=== PATIENT | female | born 1945 | race Caucasian/White ===

== ENCOUNTER 2017-07-10 13:27 | Observation (INO) | payer MEDICARE, OTHER ==
[~2017-07-10] VITALS: Ht 165.1 cm; Wt 81.5 kg
[2017-07-10] MEDS ORDERED: KETOROLAC 15 MG INJ IV STA (13:41)
[2017-07-10 14:12] LABS: BASOPHIL # 0.1 10^3/ul (0.0-0.1); BASOPHILS % 0.7 % (0.0-2.0); EOSINOPHILS # 0.3 10^3/ul (0.0-0.5); EOSINOPHILS % 3.5 % (0.0-7.0); HEMATOCRIT 38.4 % (37.0-47.0); HEMOGLOBIN 12.5 g/dl (12.0-16.0); LYMPHOCYTES # 2.7 10^3/ul (0.8-2.9); LYMPHOCYTES % 31.2 % (15.0-51.0); MEAN CORPUSCULAR HEMOGLOBIN 29.3 pg (29.0-33.0); MEAN CORPUSCULAR HGB CONC 32.6 g/dl (32.0-37.0); MEAN CORPUSCULAR VOLUME 90.1 fl (82.0-101.0); MEAN PLATELET VOLUME 10.7 fl (7.4-10.4); MONOCYTE # 0.7 10^3/ul (0.3-0.9); MONOCYTES % 7.4 % (0.0-11.0); PLATELET COUNT 281 10^3/UL (140-415); RED BLOOD COUNT 4.26 10^6/ul (4.20-5.40); RED CELL DISTRIBUTION WIDTH 13.2 % (11.5-14.5); WHITE BLOOD COUNT 8.8 10^3/ul (4.8-10.8)
[2017-07-10 14:32] LABS: ALBUMIN 4.5 g/dl (3.3-4.9); ALBUMIN/GLOBULIN RATIO 1.32; BILIRUBIN,INDIRECT 0.3 mg/dl (0-1.1); BILIRUBIN,TOTAL 0.3 mg/dl (0.2-1.3); CALCIUM 9.5 mg/dl (8.4-10.2); CREATININE 0.82 mg/dl (0.44-1.00); POTASSIUM 4.8 mmol/L (3.5-5.1); TOTAL PROTEIN 7.9 g/dl (6.1-8.1)
[2017-07-10 14:39] LABS: D-DIMER 488.69 ng/ml (<460)
--- NOTE | 2017-07-10 14:39 | RADRPT ---
PROCEDURE: XR Chest. CLINICAL INDICATION: Abdominal pain. TECHNIQUE: Single frontal chest x-ray. COMPARISON: 05/13/2008 FINDINGS: The lungs are clear. No focal opacification is seen. No pneumothorax or pleural effusion is seen. The cardiomediastinal silhouette is unremarkable. The osseous structures are grossly unremarkable. IMPRESSION: No evidence of acute cardiopulmonary disease. RPTAT: JJ .Mark More MD, MD Date Time Electronically viewed and signed by .Mark More MD, on 07/10/2017 14:39 .A/
[2017-07-10 14:44] LABS: TROPONIN-I 0.017 ng/ml (0.00-0.12)
[2017-07-10] MEDS ORDERED: ASPIRIN 81 MG TAB PO ONE (15:00)
[2017-07-10] MEDS ORDERED: IOHEXOL 100 ML ONE (15:41)
[2017-07-10] MEDS ORDERED: IOHEXOL 350MG/ML 50 ML BTL ONE (15:41)
[2017-07-10] MEDS ORDERED: SOD CHLORIDE 0.9% 100 ML ONE (15:41)
[2017-07-10 15:51] LABS: ADD UMIC YES; UR ASCORBIC ACID NEGATIVE (NEGATIVE); UR BILIRUBIN (Dip) NEGATIVE (NEGATIVE); UR BLOOD (Dip) 2+ mg/dL (NEGATIVE); UR CLARITY CLEAR (CLEAR); UR COLOR COLORLESS (YELLOW); UR GLUCOSE (Dip) NEGATIVE (NEGATIVE); UR KETONES (Dip) NEGATIVE (NEGATIVE); UR LEUKOCYTE ESTERASE (Dip) NEGATIVE Leu/ul (NEGATIVE); UR NITRITE (Dip) NEGATIVE (NEGATIVE); UR RBC 3 /HPF (0-5); UR SPECIFIC GRAVITY (Dip) 1.003 (1.003-1.030); UR TOTAL PROTEIN (Dip) NEGATIVE (NEGATIVE); UR UROBILINOGEN (Dip) NEGATIVE (NEGATIVE)
[2017-07-10] MEDS ORDERED: NACL 0.9% 3 ML SYG IV SCH (16:00)
[2017-07-10] MEDS ORDERED: morphine 2 MG INJ IV PRN (16:00)
[2017-07-10] MEDS ORDERED: ZOLPIDEM 5 MG TAB PO PRN (16:00)
[2017-07-10] MEDS ORDERED: LORAZEPAM 2 MG INJ IV PRN (16:00)
[2017-07-10] MEDS ORDERED: BISACODYL 10 MG SUPP PR PRN (16:00)
[2017-07-10] MEDS ORDERED: NITROGLYCERIN (SL) 0.4 MG TAB SL PRN (16:00)
[2017-07-10] MEDS ORDERED: MAGNESIUM HYDROXIDE 30ML CUP PO PRN (16:00)
[2017-07-10] MEDS ORDERED: ACETAMINOPHEN 325 MG TAB PO PRN (16:00)
[2017-07-10] MEDS ORDERED: DOCUSATE SODIUM 100 MG CAP PO PRN (16:00)
[2017-07-10] MEDS ORDERED: ONDANSETRON 4 MG INJ IV PRN (16:00)
[2017-07-10 16:20] VITALS: TEMP 98.4
--- NOTE | 2017-07-10 16:29 | RADRPT ---
PROCEDURE: CT ANGIOGRAM CHEST, PULMONARY EMBOLISM PROTOCOL: CLINICAL INDICATION: 72 years of age, female , rule out PE. COMPARISON: None TECHNIQUE: Image acquisition by series (and radiation doses in CTDIvol): 2.8, 28.2 and 13.3 mGy) Estimated cumulative dose or total cycm-dfclmy-omkfohk (DLP) is: 538 mGy-cm. Intravenous Contrast Medium Administered: 120 mL of Omnipaque 350 Cardiac Gating: None. FINDINGS: CARDIOVASCULAR: Diagnostic quality: Contrast opacification of the pulmonary arterial circulation is adequate for ass essment of pulmonary embolism. Study is not significantly limited by respiratory motion artifact. Pulmonary arteries: No filling defects to suggest pulmonary embolism. Not enlarged. Heart: No interventricular septal deviation. Normal in size. Mild coronary artery calcification. No significant valvular calcification. Pericardium: Small pericardial effusion. Thoracic aorta: Atherosclerosis. No aneurysm. Normal cervical branching. REMAINING CHEST: Medical devices: None. Thyroid: Normal. Lymph nodes: No supraclavicular, axillary, mediastinal, or hilar lymphadenopathy. Other mediastinal structures: No significant abnormality. Lung parenchyma: 0.5 cm ground-glass nodule posterior right upper lobe (3/96) and right lower lobe ( 3/145). 0.5 cm subpleural pulmonary nodule left lower lobe (3/194). 0.7 cm pulmonary nodule left lo wer lobe (3/191). Linear atelectasis right middle lobe and left lingula.. Airways: No significant abnormality. Pleura: No significant abnormality. Chest wall: No significant abnormality. Upper abdomen: Status post cholecystectomy with surgical clips. Bilateral renal parenchymal cysts. Musculoskeletal: Multilevel degenerative changes in spine. No suspicious bone lesions. IMPRESSION: Negative for evidence of acute PE. Nonspecific small pulmonary nodules measuring up to 0.7 cm in the left lower lobe. Recommend correl ation with previous imaging if available. If not available and in the absence of a known primary ne oplasm, recommend follow-up low-dose chest CT in 6-12 months per Fleischner criteria guidelines. RPTAT: HCTS Physician Juan Carlos Date Time Electronically viewed and signed by Physician Juan Carlos on 07/10/2017 16:28 CS/
[2017-07-10] MEDS ORDERED: DIPHENHYDRAMINE 50 MG INJ IV ONE (16:30)
[2017-07-10] MEDS ORDERED: hydrALAzine 20 MG INJ IV PRN (17:00)
[2017-07-10] MEDS ORDERED: LORAZEPAM 1 MG TAB PO PRN (17:00)
[2017-07-10] MEDS ORDERED: DIPHENHYDRAMINE 50 MG INJ IV PRN (17:00)
--- NOTE | 2017-07-10 17:01 | ERA ---
ER Documentation Chief Complaint Date/Time DATE: 07/10/17 TIME: 16:42 Chief Complaint BIB [facility] FOR CHEST PAIN X 3 DAYS , SEEN BY PMD TODAY FOR SAME HPI 72-year-old woman brought in by EMS from doctor's office for left axillary pain 3 days and "abnormal EKG" patient denies chest pain although does have pain over the left breast the left axilla for 3 days, she states the pain is new and denies previous episodes. She has had no cough, no calf or leg swelling, no fevers or chills, no headache or blurry vision. Patient was transported here by EMS without further complications. ROS All systems reviewed and are negative except as per history of present illness. Medications Home Meds No Active Prescriptions or Reported Meds Allergies Allergies: Coded Allergies: No Known Allergy (Unverified , 07/10/17) PMhx/Soc Dementia History of Surgery: Yes (CHOLECYSTECTOMY ) Anesthesia Reaction: No Hx Neurological Disorder: No Hx Respiratory Disorders: No Hx Cardiac Disorders: Yes (HIGH CHOLESTEROL ) Hx Psychiatric Problems: Yes (DEMENTIA) Hx Miscellaneous Medical Probl: Yes (GASTRITIS ) Hx Alcohol Use: Yes Hx Substance Use: No Hx Tobacco Use: No Smoking Status: Never smoker FmHx Family History: No diabetes Physical Exam Vitals Vital Signs Date Time Temp Pulse Resp B/P Pulse Ox O2 Delivery O2 Flow Rate FiO2 07/10/17 16:20 98.4 84 18 152/83 99 Room Air 07/10/17 13:41 98.1 94 18 144/93 98 Physical Exam GENERAL: Well-developed, well-nourished, well-hydrated, in no apparent distress , looks nontoxic in appearance HEENT: Moist mucous membranes, pink conjunctiva, no cervical spine tenderness or step-off deformities, no goiter, no jaundice or icterus, extraocular movements intact without pain. No submandibular induration, and no pharyngeal erythema NEURO: Alert and oriented 3, cranial nerves II through XII intact bilaterally, pupils equal round reactive to light, no focal deficits or facial asymmetry, sensation intact distally Strength 5/5 in upper and lower extremities bilaterally CARDIAC: Regular rate and rhythm, no murmurs rubs or gallops LUNGS: Clear bilaterally no wheezing crackles or stridor ABDOMEN: Soft nontender, no guarding, no rigidity, no rebound, no psoas sign no obturator sign. Normoactive bowel sounds SKIN: Warm and dry to touch, no abrasions, contusions, or hematomas, no lacerations, no ecchymosis, no target lesions, and without ulcers EXTREMITIES: No clubbing cyanosis or edema, calves are bilaterally symmetrical, no Homans sign, no popliteal cord sign. Distal pulses equal and bilateral PSYCH: Flat affect Result Diagram: 07/10/17 1350 07/10/17 1350 Results 24 hrs Laboratory Tests Test 07/10/17 13:50 07/10/17 14:20 White Blood Count 8.810^3/ul Red Blood Count 4.2610^6/ul Hemoglobin 12.5g/dl Hematocrit 38.4% Mean Corpuscular Volume 90.1fl Mean Corpuscular Hemoglobin 29.3pg Mean Corpuscular Hemoglobin Concent 32.6g/dl Red Cell Distribution Width 13.2% Platelet Count 52446^3/UL Mean Platelet Volume 10.7fl Neutrophils % 57.0% Lymphocytes % 31.2% Monocytes % 7.4% Eosinophils % 3.5% Basophils % 0.7% Nucleated Red Blood Cells % 0.0/100WBC Neutrophils # 5.010^3/ul Lymphocytes # 2.710^3/ul Monocytes # 0.710^3/ul Eosinophils # 0.310^3/ul Basophils # 0.110^3/ul Nucleated Red Blood Cells # 0.010^3/ul D-Dimer 488.69ng/ml D-Dimer Comment Sodium Level 143mmol/L Potassium Level 4.8mmol/L Chloride Level 103mmol/L Carbon Dioxide Level 23mmol/L Anion Gap 22 Blood Urea Nitrogen 10mg/dl Creatinine 0.82mg/dl Glucose Level 84mg/dl Calcium Level 9.5mg/dl Total Bilirubin 0.3mg/dl Direct Bilirubin 0.00mg/dl Indirect Bilirubin 0.3mg/dl Aspartate Amino Transf (AST/SGOT) 23IU/L Alanine Aminotransferase (ALT/SGPT) 29IU/L Alkaline Phosphatase 80IU/L Troponin I 0.017ng/ml B-Type Natriuretic Peptide 162PG/ML Total Protein 7.9g/dl Albumin 4.5g/dl Globulin 3.40g/dl Albumin/Globulin Ratio 1.32 Lipase 215U/L Urine Color COLORLESS Urine Clarity CLEAR Urine pH 5.0 Urine Specific [place] 1.003 Urine Ketones NEGATIVEmg/dL Urine Nitrite NEGATIVEmg/dL Urine Bilirubin NEGATIVEmg/dL Urine Urobilinogen NEGATIVEmg/dL Urine Leukocyte Esterase NEGATIVELeu/ul Urine Microscopic RBC 3/HPF Urine Microscopic WBC 0/HPF Urine Hemoglobin 2+mg/dL Urine Glucose NEGATIVEmg/dL Urine Total Protein NEGATIVEmg/dl Current Medications Medications (Trade) Dose Ordered Sig/Merritt Route PRN Reason Start Time Stop Time Status Last Admin Dose Admin Ketorolac Tromethamine (Toradol) 15 mg ONCE STAT IV 07/10/17 13:41 07/10/17 13:43 DC 07/10/17 13:52 Aspirin (Aspirin) 324 mg ONCE ONCE PO 07/10/17 15:00 07/10/17 15:01 DC 07/10/17 15:22 IV Flush 10 ml 10 ml STK-MED ONCE .ROUTE 07/10/17 15:41 07/10/17 15:42 DC 07/10/17 16:06 Sodium Chloride 100 ml @ ud STK-MED ONCE .ROUTE 07/10/17 15:41 07/10/17 15:42 DC 07/10/17 16:07 Iohexol (Omnipaque) 100 ml @ ud STK-MED ONCE .ROUTE 07/10/17 15:41 07/10/17 15:42 DC 07/10/17 16:06 Iohexol 50 ml 50 ml STK-MED ONCE .ROUTE 07/10/17 15:41 07/10/17 15:42 DC 07/10/17 16:07 Sodium Chloride (NS) 1,000 ml @ 75 mls/hr [id number] IV 07/10/17 15:48 IV Flush (NS 3 ml) 3 ml PER PROTOCOL IV 07/10/17 16:00 Lorazepam (Ativan) 0.5 mg Q6H PRN IV ANXIETY 07/10/17 16:00 07/10/17 16:38 DC Ondansetron HCl (Zofran Inj) 4 mg Q6H PRN IV NAUSEA AND/OR VOMITING 07/10/17 16:00 Aspirin (Aspirin) 81 mg DAILY PO 07/11/17 09:00 Nitroglycerin (Nitroglycerin (Sl Tab) 0.4 Mg) 1 tab Q5M PRN SL CHEST PAIN 07/10/17 16:00 Acetaminophen (Tylenol Tab) 650 mg Q6H PRN PO PAIN LEVEL 1-3 OR FEVER 07/10/17 16:00 Morphine Sulfate (morphine) 2 mg Q4H PRN IV PAIN LEVEL 7-10 07/10/17 16:00 Zolpidem Tartrate (Ambien) 5 mg QHS PRN PO INSOMNIA 07/10/17 16:00 07/10/17 16:38 DC Docusate Sodium (Colace) 100 mg Q12H PRN PO CONSTIPATION 07/10/17 16:00 Magnesium Hydroxide (Milk Of Mag) 30 ml DAILY PRN PO CONSTIPATION 07/10/17 16:00 Bisacodyl (Dulcolax Supp) 10 mg DAILY PRN LA CONSTIPATION 07/10/17 16:00 Pantoprazole (Protonix Tab) 40 mg DAILY@06 PO 07/11/17 06:00 Enoxaparin Sodium (Lovenox) 40 mg DAILY SC 07/11/17 09:00 Diphenhydramine HCl (Benadryl) 25 mg ONCE ONCE IV 07/10/17 16:30 07/10/17 16:31 DC 07/10/17 16:16 Lorazepam (Ativan) 1 mg Q8 PRN PO ANXIETY 07/10/17 17:00 UNV Diphenhydramine HCl (Benadryl) 25 mg Q6H PRN IV ITCHING 07/10/17 17:00 UNV Metoprolol Tartrate (Lopressor) 25 mg BID PO 07/10/17 21:00 UNV Hydralazine HCl (Apresoline) 10 mg Q8H PRN IV ELEVATED BLOOD PRESSURE 07/10/17 17:00 UNV Atorvastatin Calcium (Lipitor) 40 mg HS PO 07/10/17 21:00 UNV Procedures/MDM IV line was established patient was placed on night monitor rhythm strip revealed a sinus rhythm at about 90 bpm with upright P and T waves. Patient was afebrile. Thorough manual examination of the left axilla was performed, normal, mobile, nontender lymph nodes palpated no obvious tender or firm lymphadenopathy was noted. EKG performed, read by me revealed a normal sinus rhythm at 92 bpm, normal axis , narrow QRS complex, no concerning ST elevations or depressions noted. Chest X-ray 1V Interpreted by me: Soft Tissue: No acute abnormalities Bones: No acute abnormalities Mediastinum/Cardiac Silhouette/Lungs: No acute abnormalities CBC and electrolytes were normal, liver function tests are normal, troponin was negative. Urine analysis was negative for infection. D-dimer elevated at 490. Patient's complaints of pain are vague and she has been experiencing new, unusual axillary pain so I ordered CT angiogram of the chest. CTA was negative for pulmonary embolism although it did reveal left pulmonary nodules, further workup required I will defer to the admitting physician and her PMD. Cardiac Critical Care: Time: 37 minutes, this was time separate from other billable procedures Treatments/Evaluations: Close monitoring for dangerous arrhythmia and cardiovascular collapse, while treating with advance cardiac medications and techniques. I administered aspirin 324 mg p.o. for cardioprotective measures and Toradol 15 mg IV 1. Patient will be admitted to telemetry setting for continued medical management cardiology consultation Departure Diagnosis: Primary Impression: Chest pain Qualified Code: R07.9 - Chest pain, unspecified type Additional Impressions: Pulmonary nodules Left axillary pain Dementia Qualified Code: G30.8 - Alzheimer's dementia with behavioral disturbance, unspecified timing of dementia onset Condition: HUY Horowitz MD Jul 10, 2017 17:01
[2017-07-10 17:08] VITALS: PULSE 60
--- NOTE | 2017-07-10 17:29 | HP ---
Date/Time of Note Date/Time of Note DATE: 07/10/17 TIME: 17:16 Assessment/Plan VTE Prophylaxis VTE Prophylaxis Intervention: LMWH Assessment/Plan Assessment/Plan 72-year-old female: 1. Chest discomfort, left-sided under the breast and axillary area, seems to be atypical, CT angiogram negative. Cardiac enzymes negative 1, EKG with no acute changes. 2 more sets of cardiac enzymes to rule out for acute coronary syndrome 2D echocardiogram Cardiology consult for possible stress test in a.m. Blood pressure control Check fasting lipid panel and start statin therapy as patient does have a history of hyperlipidemia and noncompliant. Baby aspirin daily 2. Hypertension: Start metoprolol, monitor on telemetry 3. Hyperlipidemia: Check fasting lipid panel, start statin therapy 4. Memory loss, early/mild dementia: Patient apparently was on Namenda as an outpatient but was not compliant with it and she would forget to take it. I have advised the daughter to request for neurology referral as an outpatient through their primary care physician for dementia workup and care. Prophylaxis: Pepcid for GI prophylaxis, Lovenox for DVT prophylaxis Disposition: Admit to telemetry observation, rule out acute coronary syndrome, cardiology consult for possible stress test in a.m. HPI/ROS Admit Date/Time Admit Date/Time Jul 10, 2017 at 15:48 Hx of Present Illness Chief complaint: Left-sided chest discomfort History of presenting illness: This is a 72-year-old female with known hyperlipidemia, hypertension noncompliant with medication due to apparently worsening memory loss and possible mild dementia who was brought into the emergency department by her daughter after being referred by their primary care physician due to chest pain and reported abnormal EKG. Patient was also hypertensive at the primary care physician office. In the emergency department when questioned the patient does not even remember having chest pains, she is slightly hypertensive systolic in the 150s, EKG shows possible old anterior infarct, cardiac enzymes negative 1 and chest x-ray within normal. Patient had a slightly elevated d-dimer, CT angiogram was done, no pulmonary embolus, patient does have a pulmonary nodule subcentimeter unlikely to cause symptoms. Given her risk factors she is being admitted to telemetry observation for rule out acute coronary syndrome, 2D echocardiogram has been ordered, 2 additional set of cardiac enzymes will be drawn overnight. Echocardiogram has been ordered and Dr. Floyd will be consulted for possible stress test in a.m. if cardiac enzymes are negative. Patient is started on antihypertensive along with statin therapy. He is also maintained on baby aspirin. She denies dizziness, diaphoresis, nausea, vomiting, she is unable to tell me if there are any alleviating or exacerbating factors of her chest pain or pressure. She denies shortness of breath or pleuritic pain. She denies lower extremity edema or dyspnea on exertion. She does have varicose veins noted. ROS Constitutional: no complaints Eyes: no complaints Respiratory: no complaints Cardiovascular: chest pain Gastrointestinal: no complaints Genitourinary: no complaints Musculoskeletal: no complaints Neurologic: other (Memory loss) Endocrine: no complaints Lymphatic: other (Varicose vein) Psychological: confusion (At times) PMH/Family/Social Past Medical History Memory loss, early dementia. Medical History: high cholesterol, hypertension Past Surgical History Past Surgical Hx: cholecystectomy (Remotely) Social History Alcohol Use: none Smoking Status: Never smoker Exam/Review of Systems Vital Signs Vitals Vital Signs Date Time Temp Pulse Resp B/P Pulse Ox O2 Delivery O2 Flow Rate FiO2 07/10/17 17:08 60 07/10/17 16:20 98.4 18 152/83 99 Room Air Exam Constitutional: alert, oriented (2 to 3), well developed Head: atraumatic, normocephalic Neck: supple Respiratory: clear to auscultation, normal air movement Cardiovascular: nl pulses, regular rate and rhythm Gastrointestinal: non-tender, soft Musculoskeletal: nl extremities to inspection, other (No edema, clubbing or cyanosis) Extremities: other (Varicose veins noted bilaterally) Neurological: CAR HOP II-XII intact, nl mental status (Occasional memory loss), nl speech Labs Result Diagram: 07/10/17 1350 07/10/17 1350 Medications Medications Current Medications Sodium Chloride (NS) 1,000 ml @ 75 mls/hr [id number] IV ; Start 07/10/17 at 15:48 Ondansetron HCl (Zofran Inj) 4 mg Q6H PRN IV NAUSEA AND/OR VOMITING; Start 09/16 at 16:00 Aspirin (Aspirin) 81 mg DAILY PO ; Start 07/11/17 at 09:00 Nitroglycerin (Nitroglycerin (Sl Tab) 0.4 Mg) 1 tab Q5M PRN SL CHEST PAIN; Start 07/10/17 at 16:00 Acetaminophen (Tylenol Tab) 650 mg Q6H PRN PO PAIN LEVEL 1-3 OR FEVER; Start at 16:00 Morphine Sulfate (morphine) 2 mg Q4H PRN IV PAIN LEVEL 7-10; Start 07/10/17 at 16:00 Docusate Sodium (Colace) 100 mg Q12H PRN PO CONSTIPATION; Start 07/10/17 at 16: 00 Magnesium Hydroxide (Milk Of Mag) 30 ml DAILY PRN PO CONSTIPATION; Start at 16:00 Bisacodyl (Dulcolax Supp) 10 mg DAILY PRN OR CONSTIPATION; Start 07/10/17 at 16 :00 Pantoprazole (Protonix Tab) 40 mg DAILY@06 PO ; Start 07/11/17 at 06:00 Enoxaparin Sodium (Lovenox) 40 mg DAILY SC ; Start 07/11/17 at 09:00 Lorazepam (Ativan) 1 mg Q8H PRN PO ANXIETY/INSOMNIA; Start 07/10/17 at 17:00 Diphenhydramine HCl (Benadryl) 25 mg Q6H PRN IV ITCHING; Start 07/10/17 at 17: 00 Metoprolol Tartrate (Lopressor) 25 mg BID PO ; Start 07/10/17 at 21:00 Hydralazine HCl (Apresoline) 10 mg Q8H PRN IV ELEVATED BLOOD PRESSURE; Start at 17:00 Atorvastatin Calcium (Lipitor) 40 mg HS PO ; Start 07/10/17 at 21:00 Procedures Procedures PROCEDURE: CT ANGIOGRAM CHEST, PULMONARY EMBOLISM PROTOCOL: CLINICAL INDICATION: 72 years of age, female , rule out PE. COMPARISON: None TECHNIQUE: Image acquisition by series (and radiation doses in CTDIvol): 2.8, 28.2 and 13.3 mGy) Estimated cumulative dose or total jqcq-wxqhlt-qzpcvyh (DLP) is: 538 mGy-cm. Intravenous Contrast Medium Administered: 120 mL of Omnipaque 350 Cardiac Gating: None. FINDINGS: CARDIOVASCULAR: Diagnostic quality: Contrast opacification of the pulmonary arterial circulation is adequate for assessment of pulmonary embolism. Study is not significantly limited by respiratory motion artifact. Pulmonary arteries: No filling defects to suggest pulmonary embolism. Not enlarged. Heart: No interventricular septal deviation. Normal in size. Mild coronary artery calcification. No significant valvular calcification. Pericardium: Small pericardial effusion. Thoracic aorta: Atherosclerosis. No aneurysm. Normal cervical branching. REMAINING CHEST: Medical devices: None. Thyroid: Normal. Lymph nodes: No supraclavicular, axillary, mediastinal, or hilar lymphadenopathy. Other mediastinal structures: No significant abnormality. Lung parenchyma: 0.5 cm ground-glass nodule posterior right upper lobe (3/96) and right lower lobe (3/145). 0.5 cm subpleural pulmonary nodule left lower lobe (3/194). 0.7 cm pulmonary nodule left lower lobe (3/191). Linear atelectasis right middle lobe and left lingula.. Airways: No significant abnormality. Pleura: No significant abnormality. Chest wall: No significant abnormality. Upper abdomen: Status post cholecystectomy with surgical clips. Bilateral renal parenchymal cysts. Musculoskeletal: Multilevel degenerative changes in spine. No suspicious bone lesions. IMPRESSION: Negative for evidence of acute PE. Nonspecific small pulmonary nodules measuring up to 0.7 cm in the left lower lobe. Recommend correlation with previous imaging if available. If not available and in the absence of a known primary neoplasm, recommend follow-up low-dose chest CT in 6-12 months per Fleischner criteria guidelines. LA KOVACS Jul 10, 2017 17:29
[2017-07-10 17:39] VITALS: Ht 165.1 cm; Wt 81.5 kg
[2017-07-10 17:59] VITALS: BP 131/69; PULSE 68; RESP 18
[2017-07-10] MEDS: SOD CHLORIDE 0.9% 1,000 ML IV SCH (18:45)
[2017-07-10 20:00] VITALS: PULSE 62
[2017-07-10 20:08] VITALS: BP 142/82; RESP 20
[2017-07-10 20:32] LABS: CREATINE KINASE 104 IU/L (23-200)
[2017-07-10 20:42] LABS: CK-MB 1.14 ng/ml (0.0-2.4)
[2017-07-10 20:47] LABS: TROPONIN-I < 0.012 ng/ml (0.00-0.12)
[2017-07-10] MEDS: METOPROLOL 25 MG TAB PO SCH (20:48)
[2017-07-10] MEDS ORDERED: ATORVASTATIN 40 MG TAB PO SCH (21:00)
[2017-07-11] VITALS (10 sets, daily range): BP systolic 113–139; BP diastolic 58–94; PULSE 52–85; RESP 19–20
[2017-07-11 03:21] LABS: BASOPHIL # 0.1 10^3/ul (0.0-0.1); BASOPHILS % 0.7 % (0.0-2.0); EOSINOPHILS # 0.4 10^3/ul (0.0-0.5); HEMATOCRIT 37.4 % (37.0-47.0); HEMOGLOBIN 12.3 g/dl (12.0-16.0); LYMPHOCYTES # 3.2 10^3/ul (0.8-2.9); LYMPHOCYTES % 41.6 % (15.0-51.0); MEAN CORPUSCULAR HEMOGLOBIN 29.7 pg (29.0-33.0); MEAN CORPUSCULAR HGB CONC 32.9 g/dl (32.0-37.0); MEAN CORPUSCULAR VOLUME 90.3 fl (82.0-101.0); MEAN PLATELET VOLUME 10.2 fl (7.4-10.4); MONOCYTE # 0.6 10^3/ul (0.3-0.9); MONOCYTES % 8.3 % (0.0-11.0); NEUTROPHIL # 3.4 10^3/ul (1.6-7.5); NEUTROPHILS % 44.1 % (39.0-77.0); PLATELET COUNT 277 10^3/UL (140-415); RED BLOOD COUNT 4.14 10^6/ul (4.20-5.40); RED CELL DISTRIBUTION WIDTH 13.1 % (11.5-14.5); WHITE BLOOD COUNT 7.7 10^3/ul (4.8-10.8)
[2017-07-11 03:40] LABS: CHOL/HDL RATIO 4.2 RATIO; CREATINE KINASE 81 IU/L (23-200)
[2017-07-11 03:42] LABS: ALBUMIN/GLOBULIN RATIO 1.25; BILIRUBIN,INDIRECT 0.4 mg/dl (0-1.1); BILIRUBIN,TOTAL 0.4 mg/dl (0.2-1.3); CALCIUM 9.1 mg/dl (8.4-10.2); CREATININE 0.86 mg/dl (0.44-1.00); POTASSIUM 4.5 mmol/L (3.5-5.1); TOTAL PROTEIN 7.2 g/dl (6.1-8.1)
[2017-07-11 03:54] LABS: CK-MB 1.04 ng/ml (0.0-2.4)
[2017-07-11 04:35] LABS: TROPONIN-I < 0.012 ng/ml (0.00-0.12)
[2017-07-11] MEDS: SOD CHLORIDE 0.9% 1,000 ML IV SCH (05:34)
[2017-07-11] MEDS ORDERED: PANTOPRAZOLE (EC) 40 MG TAB PO SCH (06:00)
[2017-07-11] MEDS: METOPROLOL 25 MG TAB PO SCH (08:57)
[2017-07-11] MEDS ORDERED: ENOXAPARIN 40 MG/0.4 ML SYG SC SCH (09:00)
[2017-07-11] MEDS ORDERED: ASPIRIN 81 MG TAB PO SCH (09:00)
[2017-07-11] MEDS ORDERED: REGADENOSON 0.4 MG/5 ML SYG ONE (13:45)
--- NOTE | 2017-07-11 15:33 | RADRPT ---
PROCEDURE: Nuclear medicine myocardial stress and rest scan. CLINICAL INDICATION: Chest pain. TECHNIQUE: The patient was stressed with 0.4 mg IV Lexiscan. 10.4 mCi technetium 99m Tetrofosmin (Myoview) was administered rest. 32.6 mCi technetium 99m Tetrofosmin (Myoview) was administered du ring stress. Images were obtained and reconstructed in the short axis, horizontal long axis, and ve rtical long axis. Gated images were obtained and ejection fraction was calculated. COMPARISON: No prior study is available for comparison. FINDINGS: The stress and rest images demonstrate normal uptake throughout. There is no fixed abnormality or r eversible abnormality. There is no evidence of transient ischemic dilatation. Wall motion is normal. There is normal wall thickening during systole. Ejection fraction at stress is 86%. IMPRESSION: 1. No evidence of stress induced myocardial ischemia. 2. Ejection fraction at stress is 86%. RPTAT: QQ .Javier Khan MD, MD Date Time Electronically viewed and signed by .Javier Khan MD, on 07/11/2017 15:33 .R/
--- NOTE | 2017-07-11 15:55 | PN ---
Date/Time of Note Date/Time of Note DATE: 07/11/17 TIME: 15:52 Assessment/Plan VTE Prophylaxis VTE Prophylaxis Intervention: LMWH Lines/Catheters IV Catheter Type (from [facility], [place]): Saline Lock Urinary Cath still in place: No Assessment/Plan Assessment/Plan 72-year-old female: 1. Chest discomfort, left-sided under the breast and axillary area, seems to be atypical, CT angiogram negative. Cardiac enzymes negative 3, EKG with no acute changes. 2D echocardiogram within normal. Stress test negative this morning. Discharge home on baby aspirin, low-dose beta blockers and statin therapy. Appreciate recommendations from cardiology. 2. Hypertension: Continue low-dose metoprolol. 3. Hyperlipidemia: Continue statin therapy. 4. Memory loss, early/mild dementia: Patient apparently was on Namenda as an outpatient but was not compliant with it and she would forget to take it. I have advised the daughter to request for neurology referral as an outpatient through their primary care physician for dementia workup and care. Prophylaxis: Pepcid for GI prophylaxis, Lovenox for DVT prophylaxis Disposition: Discharge home, follow-up with primary care physician within 1 week Subjective 24 Hr Interval Summary Free Text/Dictation Patient doing well this morning, no complaints at all, she does not even remember having an episode of chest pain from what she is trying to communicate. Cardiac workup negative, CT angiogram negative. Discharge home today with outpatient referral to neurology for workup and treatment of early dementia. Exam/Review of Systems Vital Signs Vitals Vital Signs Date Time Temp Pulse Resp B/P Pulse Ox O2 Delivery O2 Flow Rate FiO2 07/11/17 15:42 97.8 84 20 139/94 100 07/10/17 17:59 Room Air Intake and Output 07/10/17 07/10/17 07/11/17 15:00 23:00 07:00 Intake Total 240 ml 1400 ml Output Total 500 ml Balance 240 ml 900 ml Exam Constitutional: alert, oriented, well developed Respiratory: clear to auscultation, normal air movement Cardiovascular: nl pulses, regular rate and rhythm Gastrointestinal: non-tender, soft Musculoskeletal: nl extremities to inspection Extremities: normal pulses, other (No edema, clubbing or cyanosis) Neurological: [employer] SALES [employer]ENT II-XII intact, nl mental status, nl speech, nl strength Results Result Diagram: 07/11/17 0310 07/11/17 0310 Results 24 hrs Laboratory Tests Test 07/10/17 20:03 07/11/17 03:10 Creatine Kinase 104 81 Creatine Kinase Index 1.1 1.3 Creatinine Kinase MB (Mass) 1.14 1.04 Troponin I < 0.012 < 0.012 White Blood Count 7.7 Red Blood Count 4.14 L Hemoglobin 12.3 Hematocrit 37.4 Mean Corpuscular Volume 90.3 Mean Corpuscular Hemoglobin 29.7 Mean Corpuscular Hemoglobin Concent 32.9 Red Cell Distribution Width 13.1 Platelet Count 277 Mean Platelet Volume 10.2 Neutrophils % 44.1 Lymphocytes % 41.6 Monocytes % 8.3 Eosinophils % 5.0 Basophils % 0.7 Nucleated Red Blood Cells % 0.0 Neutrophils # 3.4 Lymphocytes # 3.2 H Monocytes # 0.6 Eosinophils # 0.4 Basophils # 0.1 Nucleated Red Blood Cells # 0.0 Sodium Level 144 Potassium Level 4.5 Chloride Level 106 Carbon Dioxide Level 25 Anion Gap 18 H Blood Urea Nitrogen 10 Creatinine 0.86 Glucose Level 91 Calcium Level 9.1 Magnesium Level 2.0 Total Bilirubin 0.4 Direct Bilirubin 0.00 Indirect Bilirubin 0.4 Aspartate Amino Transf (AST/SGOT) 19 Alanine Aminotransferase (ALT/SGPT) 30 Alkaline Phosphatase 69 Total Protein 7.2 Albumin 4.0 Globulin 3.20 Albumin/Globulin Ratio 1.25 Triglycerides Level 152 H Cholesterol Level 236 H LDL Cholesterol, Calculated 150 HDL Cholesterol 56 Cholesterol/HDL Ratio 4.2 Medications Medications Current Medications Sodium Chloride (NS) 1,000 ml @ 75 mls/hr [id number] IV Last administered on 07/11 05:34; Admin Dose 75 MLS/HR; Start 07/10/17 at 15:48 Ondansetron HCl (Zofran Inj) 4 mg Q6H PRN IV NAUSEA AND/OR VOMITING; Start 09/16 at 16:00 Aspirin (Aspirin) 81 mg DAILY PO Last administered on 07/11/17 08:58; Admin Dose 81 MG; Start 07/11/17 at 09:00 Nitroglycerin (Nitroglycerin (Sl Tab) 0.4 Mg) 1 tab Q5M PRN SL CHEST PAIN; Start 07/10/17 at 16:00 Acetaminophen (Tylenol Tab) 650 mg Q6H PRN PO PAIN LEVEL 1-3 OR FEVER; Start at 16:00 Morphine Sulfate (morphine) 2 mg Q4H PRN IV PAIN LEVEL 7-10; Start 07/10/17 at 16:00 Docusate Sodium (Colace) 100 mg Q12H PRN PO CONSTIPATION; Start 07/10/17 at 16: 00 Magnesium Hydroxide (Milk Of Mag) 30 ml DAILY PRN PO CONSTIPATION; Start at 16:00 Bisacodyl (Dulcolax Supp) [address] CONSTIPATION; Start 07/10/17 at 16 :00 Pantoprazole (Protonix Tab) 40 mg DAILY@06 PO Last administered on 07/11/17 05 :34; Admin Dose 40 MG; Start 07/11/17 at 06:00 Enoxaparin Sodium (Lovenox) 40 mg DAILY SC Last administered on 07/11/17 08:59 ; Admin Dose 40 MG; Start 07/11/17 at 09:00 Lorazepam (Ativan) 1 mg Q8H PRN PO ANXIETY/INSOMNIA Last administered on 20:51; Admin Dose 1 MG; Start 07/10/17 at 17:00 Diphenhydramine HCl (Benadryl) 25 mg Q6H PRN IV ITCHING; Start 07/10/17 at 17: 00 Hydralazine HCl (Apresoline) 10 mg Q8H PRN IV ELEVATED BLOOD PRESSURE; Start at 17:00 Atorvastatin Calcium (Lipitor) 40 mg HS PO Last administered on 07/10/17 20:48 ; Admin Dose 40 MG; Start 07/10/17 at 21:00 Metoprolol Tartrate (Lopressor) 12.5 mg BID PO ; Start 07/11/17 at 21:00 Procedures Procedures PROCEDURE: Nuclear medicine myocardial stress and rest scan. CLINICAL INDICATION: Chest pain. TECHNIQUE: The patient was stressed with 0.4 mg IV Lexiscan. 10.4 mCi technetium 99m Tetrofosmin (Myoview) was administered rest. 32.6 mCi technetium 99m Tetrofosmin (Myoview) was administered during stress. Images were obtained and reconstructed in the short axis, horizontal long axis, and vertical long axis. Gated images were obtained and ejection fraction was calculated. COMPARISON: No prior study is available for comparison. FINDINGS: The stress and rest images demonstrate normal uptake throughout. There is no fixed abnormality or reversible abnormality. There is no evidence of transient ischemic dilatation. Wall motion is normal. There is normal wall thickening during systole. Ejection fraction at stress is 86%. IMPRESSION: 1. No evidence of stress induced myocardial ischemia. 2. Ejection fraction at stress is 86%. RPTAT: QQ .Javier Khan MD, MD Date Time Electronically viewed and signed by .Javier Khan MD, MD on 07/11/2017 15:33 .Carissa/ LA KOVACS Jul 11, 2017 15:55
--- NOTE | 2017-07-11 15:56 | PDOCDIS ---
Discharge Instructions CONDITION Patient Condition: Good HOME CARE INSTRUCTIONS: Special Diet: CARDIAC DIET. ACTIVITY: Activity Restrictions: No Restrictions FOLLOW UP/APPOINTMENTS Follow-up Plan Follow-up with primary care physician regarding referral to neurology outpatient for workup and treatment of early dementia. Follow-up with primary care physician for repeat CAT scan of the chest in 8-12 month follow-up subcentimeter lung nodule LA KOVACS Jul 11, 2017 15:56
[2017-07-11] MEDS ORDERED: PANT40TA4 PO (15:59)
[2017-07-11] MEDS ORDERED: ASPI81TA3 PO (15:59)
[2017-07-11] MEDS ORDERED: METO-448 PO (15:59)
[2017-07-11] MEDS ORDERED: ATOR40TA68 PO (15:59)
--- NOTE | 2017-07-11 16:17 | RADRPT ---
Echocardiogram Report Patient Name: SIGRID MUNGUIA Gender: Female Date: 1945 Study Date: 11-Jul-2017 Spinneret Cleaner: fidelia [facility] Location: [id number] Ref. Physician: PEARL KOVACS Quality: Good Procedures: Transthoracic echocardiogram with complete 2D, M-Mode, and doppler examination. Indications: Chest Pain. 2D/M Mode Doppler Measurement Value Normal Ranges Measurement Value Normal Ranges LVIDd 2D 3.5 3.5 - 5.6 cm AV Peak Michael 1.1 m/sec LVIDs 2D 2.6 2.1 - 4.1 cm AV Peak PG 5.2 mmHg LVPWd 2D 1.1 0.6 - 1.1 cm LVOT Peak Michael 0.8 m/sec IVSd 2D 1.1 0.6 - 1.1 cm LVOT Peak PG 2.4 mmHg AoR Diam 2D 3.9 2.0 - 3.7 cm MV E Peak Michael 0.7 m/sec EDV 2D 52.5 cm3 MV A Peak Michael 0.9 m/sec ESV 2D 17.5 cm3 MV E/A 0.8 LA Dimen 2D 3.5 2.3 - 4.0 cm MV Decel Time 213 msec MV Decel Mcpherson 4 MV E/A 0.8 TR Peak Michael 2.1 m/sec TR Peak PG 19.1 mmHg Findings Left Ventricle: Normal left ventricular systolic function. Normal left ventricular cavity size. Mild concentric left ventricular hypertrophy. Ejection fraction is visually estimated at 55 %. Tissue Doppler/Mitral Doppler indices are consistent with impaired relaxation (Stage I diastolic dysfunction). Right Ventricle: Normal right ventricular size. Normal right ventricular systolic function. Left Atrium: The left atrium is normal in size. Right Atrium: The right atrium is normal in size. Mitral Valve: Normal appearance of the mitral valve. Trace mitral regurgitation. Aortic Valve: Normal appearance of the aortic valve. No significant aortic stenosis or insufficiency. Tricuspid Valve: There is trace tricuspid regurgitation. Pulmonic Valve: Normal pulmonic valve appearance. Pericardium: Normal pericardium with no significant pericardial effusion. Aorta: Normal aortic root. IVC: Normal size and normal respiratory collapse consistent with normal right atrial pressure. Pulmonary Artery: Not well visualized. Conclusions 1.Normal left ventricular systolic function. Normal left ventricular cavity size. Mild concentric left ventricular hypertrophy. Ejection fraction is visually estimated at 55 %. Tissue Doppler/Mitral Doppler indices are consistent with impaired relaxation (Stage I diastolic dysfunction). 2.Normal appearance of the mitral valve. Trace mitral regurgitation. 3.There is trace tricuspid regurgitation. Electronically Signed By: Murtaza Floyd 11-Jul-2017 16:16:48 -0700 Patient Name: SIGRID MUNGUIA Study Date: 11-Jul-2017 [id number]
[2017-07-11] MEDS ORDERED: METOPROLOL 25 MG TAB PO SCH (21:00)
--- NOTE | 2017-07-12 08:16 | PRO ---
DATE OF PROCEDURE: 07/11/2017 PROCEDURE PERFORMED: Lexiscan Cardiolite stress test, electrocardiogram portion. VITAL SIGNS: Baseline vital signs, pulse 65, blood pressure 152/73. Electrocardiogram shows sinus bradycardia, rate 55, normal axis, normal intervals, T-wave flattening in aVL. INDICATION: Chest pain. Assess for ischemia. DESCRIPTION OF PROCEDURE: Patient with standard Lexiscan infusion for 10 seconds followed by tracer. Patient's test was stopped due to completion of protocol. Maximum blood pressure during the test 147/75. Maximum heart rate during test 120. FINDINGS: During Lexiscan infusion, the patient did develop transient T-wave inversion in lead V3, V4 and tachycardia, which returned to normal during recovery. No documented PVCs. Symptoms, patient had myoclonus shortness of breath. No chest pain during stress testing. IMPRESSION: 1. No Lexiscan induced ST or T-wave changes from baseline abnoramalities that are diagnostic for cardiac ischemia. 2. Complaints of shortness of breath during stress testing. No chest pain. 3. No documented premature ventricular contractions during stress test. 4. Report of nuclear images to follow in separate dictation. Dictated By: Charline Awad /fnt/bjc /Document#: [id number] CC: Phill Pan MD;*[facility]* [facility]
--- NOTE | 2017-07-12 08:17 | CONS ---
DATE OF ADMISSION: 07/10/2017 DATE OF CONSULTATION: 07/11/2017 REASON FOR CONSULTATION: Chest pain, acute cardiac syndrome. REQUESTING PHYSICIAN: Phill Pan MD HISTORY OF PRESENT ILLNESS: The patient is a 72-year-old female with history of hypertension, dyslipidemia, and dementia, who initially presented with complaints of substernal chest pain after complaining of chest painin her primary care physician's office and having an abnormal electrocardiogram. Upon arrival in the emergency department, temperature 98.1, blood pressure 140/93, pulse 94, respiratory rate 18, sating 98 percent. Patient's labs were white count of 8.8, hemoglobin 12.5, platelet count of 281. Sodium 143, potassium 4.8, creatinine 0.8, BUN 10, troponin negative. BNP 162. LDL 150, HDL 56, lipase 215. D- dimer 488. UA negative. The patient underwent a chest x-ray revealing no acute cardiopulmonary abnormalities and a CT, CTA, which revealed small pulmonary nodules. Patient's electrocardiogram had revealed sinus tach at a rate of 106 with borderline left axis deviation, borderline anterior R-wave progression, nonspecific ST-T abnormalities. The patient subsequently was admitted to the floor. Since admit to the floor, has had negative troponins times 3. The patient continued to have mild episodes of substernal chest pain. PAST MEDICAL HISTORY: As above in HPI. MEDICATIONS: Currently in the hospital, aspirin 81 mg daily, Lovenox daily, metoprolol 25 mg p.o. b.i.d., Lipitor 40 nightly, Ativan p.r.n., Benadryl p.r.n., hydralazine p.r.n., Zofran p.r.n., nitroglycerin, morphine p.r.n., IVFat 75 cc an hour ALLERGIES: NO KNOWN DRUG ALLERGIES. SOCIAL HISTORY: No tobacco, EtOH, or illicit drug use. FAMILY HISTORY: No history of cardiac or early CAD. REVIEW OF SYSTEMS: As above in HPI. CONSTITUTIONAL: No fevers, chills. RESPIRATORY: Shortness of breath. CARDIOVASCULAR: Positive chest pain. GASTROINTESTINAL: No vomiting. GENITOURINARY: No hematuria. MUSCULOSKELETAL: Degenerative joint disease. PSYCH: No documented psych. NEUROLOGIC: Dementia PHYSICAL EXAMINATION: VITAL SIGNS: Temperature of 97.8, blood pressure most recent 134/72, pulse 60, respiratory rate 20, sating 98 percent. GENERAL: The patient is alert, awake, complaining of intermittent substernal chest pain. NECK: JVP approximately 8 to 9 cm of water. LUNGS: Fair air movement throughout. HEART: Regular rate and rhythm. Normal S1, S2. 1 out of 6 systolic murmur. Nondisplaced PMI. ABDOMEN: Positive bowel sounds. Soft. EXTREMITIES: No edema. One plus pulses bilaterally LABORATORY: Most recent today, sodium 144, potassium 4.5, creatinine 0.8, BUN 10, troponin negative times 3. LDL 150, HDL 56. White count 7.7, hemoglobin 12.3, platelet count 277. IMAGING STUDIES: ECG as above in HPI with a follow up EKG from today revealing sinus bradycardia, rate 55, with left axis deviation, and inferior T-wave flattening. IMPRESSION: 1. Chest pain. Assess for acute coronary syndrome. 2. Hypertension, under reasonable control. 3. Abnl Electrocardiogram. Assess for acute coronary syndrome. 4. History of dyslipidemia. 5. Bradycardia, mild with stable blood pressure. 6. Dimension. RECOMMENDATIONS: 1. At this time, would maintain patient on telemetry 2. Check a 2D echocardiogram to further assess the ejection fraction, wall motion abnormalities. 3. The patient is status post troponins negative times 3. 4. Patient is status post lipid analysis, LDL of 150 and HDL of 56. 5. Will continue the patient's statin with slight titration. 6. Lexiscan cardiac stress test. Thank you for allowing me to participate in the care of this patient. I will continue to follow closely with you hospital course. Dictated By: Charline Awad /fnt/bjc /Document#: [id number] MASHA
== END 2017-07-11 16:32 | disposition home or self-care (01) ==
LOC: E/R 13:27 → MS4 15:48
PROVIDERS: ADMIT Internal Medicine; ATTEND Internal Medicine
DX: R07.9 Chest pain, unspecified (principal); I10 Essential (primary) hypertension; E78.5 Hyperlipidemia, unspecified; Z91.19 Patient's noncompliance with other medical treatment and regimen; F03.90 Unspecified dementia, unspecified severity, without behavioral disturbance, psychotic disturbance, mood disturbance, and anxiety; R00.1 Bradycardia, unspecified
CPT/HCPCS: 36415; 71010; 71275; 78452; 80053; 80061; 81001; 82550; 82553; 83690; 83735; 83880; 84443; 84484; 85025; 85378; 93005; 93017; 93306; 96374; 96375; 99291; A9500; A9505; G0378; J1200; J1650; J1885; J2785; J7030; Q9967; 99217